=== PATIENT | male | born 1995 | race African-American/Black ===

== ENCOUNTER 2016-12-06 11:16 | Emergency (ER) | payer OTHER ==
[~2016-12-06] VITALS: Ht 180.3 cm; Wt 90.7 kg
--- OUTSIDE RECORDS SUMMARY | 2016-12-06 11:23 | External Medical Summary Rpt ---
Author Author , Organization [employer] Address Unknown Phone Unavailable Purpose Continuity of Care Document - 03-04-1998 through 2016 Immunization Name Date Route CVX Reacti Commen Provid Is Given on t er Refuse d Tdap, Histor H149 No Adsorb 2005 ical ed Inform ation - Source Unspec ified DTaP, Histor H149 No UF 1997 ical Inform ation - Source Unspec ified MMR Histor H149 No 1997 ical Inform ation - Source Unspec ified Polio- Histor H149 No OPV 1997 ical Inform ation - Source Unspec ified
--- OUTSIDE RECORDS SUMMARY | 2016-12-06 11:23 | External Medical Summary Rpt ---
Author Author , Organization [employer] Address Unknown Phone Unavailable Care Team Providers Care Dental Billing Specialist Name Role Phone PARAMJIT ZAFAR Unavailable Unavailable PARAMJIT LOGAN Unavailable Unavailable ROSELINE [facility] Unavailable [place] [facility] [place] HOU DON, Unavailable Unavailable HOU DON HOU DON, Unavailable Unavailable HOU DON HOU, DON R, Unavailable Unavailable HOU, DON R [facility] # Unavailable Unavailable [id number], [facility] # [id number] Purpose Continuity of Care Document - 01-28-2008 through 2016 Problems Code Diagnosis DOS Provider Status 03619 UNSPECIFIED 05-08-2011 PARAMJIT DUKES INFECTIVE OTITIS EXTERNA 6989 UNSPECIFIED 03-29-2010 AMEYA PRURITIC DON DISORDER 463 ACUTE 01-28-2008 AMEYA TONSILLITIS DON R Medications Na ND Rx Da Fi Fi Am Da Di Ph RX Ph St me C No te ll ll ou ys ag ar # ys at rm s nt no ma ic us Or Da si cy ia de te s n re d TR 00 10 10 3 [address] Ac IA 16 -2 -2 .0 L- 91 EP ti MC 80 6- 6- 00 MA 68 HE ve IN 00 20 20 RT 5 NS OL 41 10 10 ON 5 PH DO E AR N 0. MA R 1% CY # CR EA 10 M 05 91 SM 49 08 09 00 12 12 EA 99 No Ac 34 -2 -[address] 22 t ti LO 80 6- 1- 00 SI 78 Av ve RA 63 20 20 0 DE ai TA 63 08 08 la DI 4 PH bl NE AR e 5 MA CY MG /5 OF CY ML NT HI SY AN RU A P AM 00 08 09 00 15 10 EA 99 No Ac OX 78 -2 -[address] 22 t ti IC 16 6- 1- 00 SI 77 Av ve IL 04 20 20 0 DE ai LI 15 08 08 la N 5 PH bl 25 AR e 0 MA MG CY /5 OF ML CY NT ALVAREZ HI SP AN A Encounters Encounter Start End Date Code Location Performer Type Date OFFICE 54422 PARAMJIT RENAJIMI OUTPATIEN 1 1 ROSELINE ROSELINE T NEW 30 MINUTES OFFICE 61159 AMEYA SILVA 0 0 DON DON T VISIT 15 MINUTES
--- OUTSIDE RECORDS SUMMARY | 2016-12-06 11:23 | External Medical Summary Rpt ---
Author Author RACHELLE Iqbal, [employer] Organization [employer] Address Unknown Phone Unavailable
--- OUTSIDE RECORDS SUMMARY | 2016-12-06 11:23 | External Medical Summary Rpt ---
Author Author , Organization [employer] Address Unknown Phone Unavailable Care Team Providers Care Food Dehydrator Operator Name Role Phone PARAMJIT ZAFAR Unavailable Unavailable PARAMJIT LOGAN Unavailable Unavailable ROSELINE [facility] Unavailable [place]available [place] [facility] [place] HOU DON, Unavailable Unavailable HOU DON HOU DON, Unavailable Unavailable HOU DON HOU, DON R, Unavailable Unavailable HOU, DON R [facility] # Unavailable Unavailable [id number], [facility] # [id number] Purpose Continuity of Care Document - 01-28-2008 through 2016 Problems Code Diagnosis DOS Provider Status 64721 UNSPECIFIED 05-08-2011 PARAMJIT DUKES INFECTIVE OTITIS EXTERNA [...] Date Code Location Performer Type Date OFFICE 70669 PARAMJIT RENAJIMI OUTPATIEN 1 1 ROSELINE ROSELINE T NEW 30 MINUTES OFFICE 25390 AMEYA SILVA 0 0 DON DON T VISIT 15 MINUTES
--- OUTSIDE RECORDS SUMMARY | 2016-12-06 11:23 | External Medical Summary Rpt ---
Author Author , Organization [employer] Address Unknown Phone Unavailable Care Team Providers Care Lead Electrical Engineer Name Role Phone PARAMJIT ZAFAR Unavailable Unavailable ROSELINE PARAMJIT ZAFAR Unavailable Unavailable ROSELINE [facility] Unavailable [place]available [place] [facility] [place] HOU DON, Unavailable Unavailable HOU DON HOU DON, Unavailable Unavailable HOU DON HOU, DON R, Unavailable Unavailable HOU, DON R [facility] # Unavailable Unavailable [id number], [facility] # [id number] Purpose Continuity of Care Document - 01-28-2008 through 2016 Problems Code Diagnosis DOS Provider Status 57899 UNSPECIFIED 05-08-2011 PARAMJIT DUKES INFECTIVE OTITIS EXTERNA [...] Date Code Location Performer Type Date OFFICE 26016 PARAMJIT CHASEJIMI OUTPATIEN 1 1 ROSELINE ROSELINE T NEW 30 MINUTES OFFICE 20717 AMEYA HOU OUTPATIEN 0 0 DON DON T VISIT 15 MINUTES
--- OUTSIDE RECORDS SUMMARY | 2016-12-06 11:23 | External Medical Summary Rpt ---
Author Author , Organization [employer] Address Unknown Phone Unavailable Care Team Providers Care Doll Maker Name Role Phone PARAMJIT ZAFAR Unavailable Unavailable ROSELINE PARAMJIT ZAFAR Unavailable Unavailable ROSELINE [facility] Unavailable Unavailable [place], [facility] [place] HOU DON, Unavailable Unavailable HOU DON HOU DON, Unavailable Unavailable HOU DON HOU, DON R, Unavailable Unavailable HOU, DON R [facility] # Unavailable Unavailable [id number], [facility] # [id number] Purpose Continuity of Care Document - 01-28-2008 through 2016 Problems Code Diagnosis DOS Provider Status 62161 UNSPECIFIED 05-08-2011 PARAMJIT DUKES INFECTIVE OTITIS EXTERNA [...] Date Code Location Performer Type Date OFFICE 29942 PARAMJIT CHASEJIMI OUTPATIEN 1 1 ROSELINE ROSELINE T NEW 30 MINUTES OFFICE 66278 AMEYA HOU OUTPATIEN 0 0 DON DON T VISIT 15 MINUTES
--- NOTE | 2016-12-06 13:16 | RADIOLOGY REPORT PS360 ---
CHEST(2 VIEWS-NOT PORTABLE) HISTORY: pain in left ribs ORDERING PHYSICIAN: ABDIEL NEVILLE APRN PATIENT AGE: 21 years COMPARISON: None available FINDINGS: The cardiomediastinal silhouette and pulmonary vascularity are within normal limits. Patchy density is present in the left midlung zone laterally and may represent pneumonia in the appropriate clinical setting. No obvious effusion. No evidence of pneumothorax.. No acute bony abnormalities. IMPRESSION: Patchy density left midlung which could be due to underlying pneumonia. Additional consideration would include infarction, contusion or even underlying ill-defined nodule. Please correlate clinically. Recommend following to clear
--- NOTE | 2016-12-06 14:07 | Urgent Treatment Center Report ---
History of Present Issue Date/Time Seen by Provider 12/06/16 1125 Visit Reason Pt arrived:Walked Presenting Problem:pt states he was treated for strep 2 weeks ago. pt began having rib pain approx 5 days ago on the left side. mimi increases with deep breathing and positioning. pt unable to lay on left side. pt states he has a non productive cough. Location if Accident: Onset of symptoms date/time:/ or onset unknown for:MEDICAL HX UNKNOWN Have you (or family members/close friends) recently traveled outside the [place]? N If Yes, where/when: Have you had exposure to infectious disease within the past month? TB? Other? Specify: c/o left anterior chest pain x1 week but worse x 2-3 days. Cough x 2 weeks. Seen in [facility]. reports dx strep and treated with azithromycin. Strep negative. "They said they didn't swab good and it looked like strep so gave me an antibiotic". Pain 6-7/10 despite 1000mg tylenol and 800mg ibuprofen. Worse w/ deep breaths and certain movements. Denies SOA or wheezing. [place] like his heart was racing days ago but EKG negative. Nonsmoker. Source patient Exam Limitations no limitations ALLERGIES Coded Allergies: No Known Allergies (12/06/16) Home Medications Reported Medications No Known Home Medications History Medical History General Angina: No [place]: No Hypertension? No Hyperlipidemia? No CHF? No COPD? No Asthma? No GI Bleed? No Hernia? No Thyroid Problems? No Hypothyroidism? No CVA? No Seizures? No Diabetes? No Renal Insuffiency? No UTI? No Stones? No BPH? No GB Disease: No Nephritic Syndrome? No Asplenia? No Hepatitis? No Sickle Cell Disease? No Arthritis? No Migraines? No Cataracts? No Glaucoma? No MRSA? No HIV? No TB? No Anxiety? No Depression? No Cancer? No Site: N More? No Immunization HX DT/Tetanus 1-4 Years Ago Surgical Hx Previous Surgery?N Social History Smoking Hx Smoker: Never Smoker Tobacco: No Alcohol Alcohol: No Review of Systems All Other Systems Reviewed and Negative Constitutional denies chills, denies fever, denies malaise ENT denies: ear pain, nose discharge, nose congestion, throat pain. Respiratory see HPI Cardiovascular see HPI Gastrointestinal denies nausea, denies vomiting Musculoskeletal denies back pain Skin denies rash Psychiatric/Neurological denies other (dizziness) Physical Exam Vital Signs Vital Signs Date Time Temp Pulse Resp B/P Pulse O2 O2 Flow FiO2 Ox Delivery Rate 12/06 1124 98.0 72 20 137/82 99 General Appearance mild distress (uncomfortable, repositioning) Eye Exam - bilateral eye normal exam Ear, Nose, Throat normal ENT inspection Neck non-tender, supple Respiratory Status Yes: trachea midline, chest symmetrical, tender on palpation (left mid anterior, left flank), pain on inspiration, non productive cough. No: respiratory distress, use of accessory muscles, pain on expiration. Lung Sounds anterior: lungs clear. posterior: lungs clear. bilateral: lungs clear. Cardiovascular regular rate/rhythm, no peripheral edema, no murmur Back no tenderness Neurologic alert, oriented x 3 Mental status normal mood/affect Skin normal color, warm/dry Lymphatic no adenopathy Medical Decision Making LABS/Meds/Orders Pt receiving controlled substance in ED? No Results/Orders Laboratory Tests 12/06/16 1135: Group A Strep Screen NOT DETECTED Orders Procedure Date/time Status [facility] STREP SCREEN 12/06 1134 Complete XRAY/CT/US XRAY/CT/US XRAY chest Comment Rvwd initially with ER MD, Dr. Sweet. Encouraged to discuss w/ radiologist due to possible abnormality left mid lung. Radiologist on lunch. Will read when he returns. Once returned, reviewed report. Discussed further w/ Dr. Sweet who suggest CTA. Departure Departure Time of Disposition 1355 Disposition Still a Patient Clinical Impression Primary Impression: Cough Secondary Impressions: Abnormal chest x-ray, Chest pain made worse by breathing Condition STABLE Additional Instructions Sent to ER for further evaluation and CTA. Prescriptions Current Visit Scripts No Known Home Medications at 1403
--- NOTE | 2016-12-06 14:07 | Urgent Treatment Center Report ---
History of Present Issue Date/Time Seen by Provider 12/06/16 1125 Visit Reason Pt arrived:Walked Presenting Problem:pt states he was treated for strep 2 weeks ago. pt began having rib pain approx 5 days ago on the left side. mimi increases with deep breathing and positioning. pt unable to lay on left side. pt states he has a non productive cough. Location if Accident: Onset of symptoms date/time:/ or onset unknown for:MEDICAL HX UNKNOWN Have you (or family members/close friends) recently traveled outside the [place]? N If Yes, where/when: Have you had exposure to infectious disease within the past month? TB? Other? Specify: c/o left anterior chest pain x1 week but worse x 2-3 days. Cough x 2 weeks. Seen in [facility]. reports dx strep and treated with azithromycin. Strep negative. "They said they didn't swab good and it looked like strep so gave me an antibiotic". Pain 6-7/10 despite 1000mg tylenol and 800mg ibuprofen. Worse w/ deep breaths and certain movements. Denies SOA or wheezing. [place] like his heart was racing days ago but EKG negative. Nonsmoker. Source patient Exam Limitations no limitations ALLERGIES Coded Allergies: No Known Allergies (12/06/16) Home Medications Reported Medications No Known Home Medications History Medical History General Angina: No OR: No Hypertension? No Hyperlipidemia? No CHF? No COPD? No Asthma? No GI Bleed? No Hernia? No Thyroid Problems? No Hypothyroidism? No CVA? No Seizures? No Diabetes? No Renal Insuffiency? No UTI? No Stones? No BPH? No GB Disease: No Nephritic Syndrome? No Asplenia? No Hepatitis? No Sickle Cell Disease? No Arthritis? No Migraines? No Cataracts? No Glaucoma? No MRSA? No HIV? No TB? No Anxiety? No Depression? No Cancer? No Site: N More? No Immunization HX DT/Tetanus 1-4 Years Ago Surgical Hx Previous Surgery?N Social History Smoking Hx Smoker: Never Smoker Tobacco: No Alcohol Alcohol: No Review of Systems All Other Systems Reviewed and Negative Constitutional denies chills, denies fever, denies malaise ENT denies: ear pain, nose discharge, nose congestion, throat pain. Respiratory see HPI Cardiovascular see HPI Gastrointestinal denies nausea, denies vomiting Musculoskeletal denies back pain Skin denies rash Psychiatric/Neurological denies other (dizziness) Physical Exam Vital Signs Vital Signs Date Time Temp Pulse Resp B/P Pulse O2 O2 Flow FiO2 Ox Delivery Rate 12/06 1124 98.0 72 20 137/82 99 General Appearance mild distress (uncomfortable, repositioning) Eye Exam - bilateral eye normal exam Ear, Nose, Throat normal ENT inspection Neck non-tender, supple Respiratory Status Yes: trachea midline, chest symmetrical, tender on palpation (left mid anterior, left flank), pain on inspiration, non productive cough. No: respiratory distress, use of accessory muscles, pain on expiration. Lung Sounds anterior: lungs clear. posterior: lungs clear. bilateral: lungs clear. Cardiovascular regular rate/rhythm, no peripheral edema, no murmur Back no tenderness Neurologic alert, oriented x 3 Mental status normal mood/affect Skin normal color, warm/dry Lymphatic no adenopathy Medical Decision Making LABS/Meds/Orders Pt receiving controlled substance in ED? No Results/Orders Laboratory Tests 12/06/16 1135: Group A Strep Screen NOT DETECTED Orders Procedure Date/time Status [facility] STREP SCREEN 12/06 1134 Complete XRAY/CT/US XRAY/CT/US XRAY chest Comment Rvwd initially with ER MD, Dr. Sweet. Encouraged to discuss w/ radiologist due to possible abnormality left mid lung. Radiologist on lunch. Will read when he returns. Once returned, reviewed report. Discussed further w/ Dr. Sweet who suggest CTA. Departure Departure Time of Disposition 1355 Disposition Still a Patient Clinical Impression Primary Impression: Cough Secondary Impressions: Abnormal chest x-ray, Chest pain made worse by breathing Condition STABLE Additional Instructions Sent to ER for further evaluation and CTA. Prescriptions Current Visit Scripts No Known Home Medications at 1408
[2016-12-06 14:21] LABS: HEMOGLOBIN 15.3 g/dL (14.1-18.0)
--- NOTE | 2016-12-06 14:24 | Emergency Room Report ---
History of Present Illness Time Seen by MD Corey Presenting Problem in Triage Pt arrived:Walked Presenting Problem:PT SENT DOWN TO EVALUATED AT [facility] FOR QUESTIONABLE PLEURITIC SYMPTOMS. CHEST XRAY CANNOT RULE OUT POSSIBLE LUNG INFARCTION Onset of symptoms date/time:/ or onset unknown for:MEDICAL HX UNKNOWN Treatment Prior to Arrival: EVAL'D AT [facility] REGISTERED PUBLIC HEALTH NURSE Provided by:NURSE Sepsis Risk Assessment: Temp: 98 B/P: 133/76 MAP: 114 Pulse: 80 Resp: 20 Recent fever? N Clinical Suspician of Infection? N Mental Status: 1 - Regular (Normal Baseline) Sepsis Risk:Low Sepsis Risk Have you (or family members/close friends) recently traveled outside the [place]? N If Yes, where/when: Have you had exposure to infectious disease within the past month? TB? Other? Specify: Comment The patient complains of left-sided pleuritic chest pain that began on Sunday 5 days ago. It got much worse today. It also hurts to sleep on that side. He was diagnosed with strep throat 2 weeks ago and treated with Z-Obie. His sore throat got better. The chest pain then developed after that. He says that he wakes up sometimes with a cough at night that produces some sputum, no blood. No fever. No leg pain or swelling. He had a chest x-ray done at the urgent treatment center today for his chest pain and the radiologist read it as showing an area of the LEFT lung that could be a infiltrate, nodule, or infarct. He is therefore sent here for a CAT scan for further evaluation. ALLERGIES Coded Allergies: No Known Allergies (12/06/16) History Medical History General Angina: No [place]: No Hypertension? No Hyperlipidemia? No CHF? No COPD? No Asthma? No GI Bleed? No Hernia? No Thyroid Problems? No Hypothyroidism? No CVA? No Seizures? No Diabetes? No Renal Insuffiency? No End Stage Renal Disease? No UTI? No Stones? No BPH? No GB Disease: No Nephritic Syndrome? No Asplenia? No Hepatitis? No Sickle Cell Disease? No Arthritis? No Migraines? No Cataracts? No Glaucoma? No MRSA? No HIV? No TB? No Anxiety? No Depression? No Cancer? No Site: N More? No Immunization Hx Ped.Immunizations UTD Yes DT/Tetanus 1-4 Years Ago Surgical Hx Previous Surgery?N Social History Smoking Hx Smoker: Never Smoker Tobacco: No Type N/A Are you/the child exposed to second-hand smoke: No Alcohol Alcohol: No Review of Systems All Other Systems Reviewed and Negative Constitutional denies fever Respiratory cough, denies shortness of breath Cardiovascular chest pain Physical Exam Vital Signs Vital Signs Date Time Temp Pulse Resp B/P Pulse O2 O2 Flow FiO2 Ox Delivery Rate 12/06 1715 80 20 133/76 98 12/06 1401 98.0 102 20 163/90 99 12/06 1124 98.0 72 20 137/82 99 General Appearance normal appearance, WD/WN Eye Exam - bilateral eye normal exam, bilateral eye PERRL, bilateral eye EOMI Ear, Nose, Throat hearing grossly normal, normal ENT inspection Neck normal inspection, non-tender, supple, full range of motion Respiratory Status Yes: trachea midline, chest symmetrical. No: respiratory distress. Lung Sounds bilateral: normal breath sounds, lungs clear. 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 No Results/Orders Laboratory Tests 12/06/16 1405: Sodium 140, Potassium 3.6, Chloride 103, Carbon Dioxide 27, BUN 14, Creatinine 1.0, Estimated Creat Clear 149, Estimated GFR (MDRD) 93, Glucose 105, Calcium 9.6, Total Bilirubin 0.4, AST 25, ALT 41, Alkaline Phosphatase 129 H, Troponin I < 0.02, Total Protein 8.9 H, Albumin 4.2, Globulin 4.7 H, Albumin/Globulin Ratio 0.9 L, WBC 9.4, RBC 5.57, Hgb 15.3, Hct 45.9, MCV 82.4, RDW 13.8, Plt Count 312, MPV 7.7, Gran % 51.1, Gran # 4.8, Lymphocytes % 42.0, Monocytes % 6.0 , Eosinophils % 0.4, Basophils % 0.5, Lymphocytes # 4.0, Monocytes # 0.6, Eosinophils # 0.0, Basophils # 0.1, PUBS MCHC 33.4, MCH 27.5 12/06/16 1135: Group A Strep Screen NOT DETECTED Current Medication Orders Sig/Aj Start time Last Medication Dose Route Stop Time Status Admin Ketorolac 30 MG ONCE ONE 12/06 1800 AC Tromethamine IV 12/06 180 Levofloxacin 500 MG ONCE ONE 12/06 1800 AC PO 12/06 1801 Iopamidol 60 ML ONCE ONE 12/06 1700 UNV 12/06 IV 12/06 170 1605 Sodium Chloride 20 ML ONCE ONE 12/06 170 UNV / IV 12/06 170 1605 Sodium Chloride 20 ML ONCE ONE 12/06 1700 UNV / IV 12/06 1701 1605 Sodium Chloride 10 ML ONCE ONE 12/06 1700 UNV 12/06 IV 12/06 1701 1605 Orders Procedure Date/time Status DIET-NOTHING BY MOUTH 12/06 D Active ELECTROCARDIOGRAM REQUEST 12/[address] CHEST W/PE PROTOCOL REQ 12/06 141 Complete TROPONIN I 12/06 1416 Complete CBC WITH AUTO DIFF 12/06 141 Complete CHEM 12 PROFILE 12/06 1416 Complete UTC STREP SCREEN 12/06 1134 Complete 12 LEAD EKG-ROBINSON (INITIAL) 12/06 UNK Active CM/EKG CM/EKG Comments EKG interpreted by Bandar Sweet MD: Rhythm: sinus Rate: 82 [place]: normal Ectopy: none Conduction: normal ST Segment Changes: none T Wave Changes: none Q Waves: none No evidence of acute ischemia or injury XRAY/CT/US XRAY/CT/US CT chest Comment CT scan interpreted by radiologist: Somewhat limited exam. No central pulmonary embolus evident. Peripheral pulmonary arteries are not well opacified. LEFT hilar and mediastinal adenopathy with nodular opacification in the LEFT upper lobe laterally which may be related to underlying pneumonia with reactive adenopathy. The pattern of consolidation is not typical for pulmonary infarction. Departure Departure Disposition DC Home or Self Care(routine) Clinical Impression Primary Impression: Pneumonia Qualifiers: Pneumonia type: due to unspecified organism Laterality: left Lung location: upper lobe of lung Qualified Code: J18.1 - Lobar pneumonia, unspecified organism Secondary Impressions: Chest pain, pleuritic Condition STABLE Patient Instructions DI for Pleurisy, DI for Pneumonia -- Adult Additional Instructions Sent to ER for further evaluation and CTA. Prescriptions Current Visit Scripts Naproxen (Naprosyn 500MG Tab) 500 MG PO BID #14 TAB Levofloxacin (Levaquin 500MG) 500 MG PO DAILY #10 TAB ED Critical Care Critical Care No at 5726
[2016-12-06 14:33] LABS: BUN 14 mg/dL (7-18)
[2016-12-06 14:34] LABS: GFR (ESTIMATED) 93 ML/MIN (>60)
--- NOTE | 2016-12-06 16:36 | RADIOLOGY REPORT PS360 ---
CTA-CHEST HISTORY: Anterior left-sided chest pain, abnormal chest x-ray R/O LUNG INFARCTION ORDERING PHYSICIAN: Bandar Sweet MD PATIENT AGE: 21 years TECHNIQUE: Helical acquisition obtained following the bolus administration of 60 mL of Isovue 370 followed by a saline bolus. Axial, sagittal, and coronal reformatted images are generated and reviewed. COMPARISON: Radiograph of the same day FINDINGS: Adenopathy is present in the aortopulmonic window and left hilum. The Peripheral pulmonary arteries are not well opacified. No proximal pulmonary embolus is evident. No evidence of aortic aneurysm. There is mild degree of motion artifact. There is nodular opacification of the left upper lobe laterally adjacent to the major fissure consistent with pneumonia. No effusions. Upper abdominal images are unremarkable. IMPRESSION: 1. Somewhat limited exam. No central pulmonary embolus evident. Peripheral pulmonary arteries are not well opacified. 2. Left hilar and mediastinal adenopathy with nodular opacification in the left upper lobe laterally which may be related to underlying pneumonia with reactive adenopathy. Follow-up recommended to confirm resolution. The pattern of consolidation is NOT typical for pulmonary infarction.
[2016-12-06] MEDS ORDERED: NAPROSYN500 M1 PO (17:51)
[2016-12-06] MEDS ORDERED: LEVAQUIN500 MG PO (17:51)
[2016-12-06 18:10] VITALS: BP 111/66
== END 2016-12-06 18:11 | disposition home or self-care (01) ==
LOC: UTC 11:16 → ER 11:20
PROVIDERS: Emergency Medicine
DX: J18.1 Lobar pneumonia, unspecified organism (principal)
CPT/HCPCS: Q9967

== ENCOUNTER → 2017-05-15 | Outpatient (CLI) | payer OTHER ==
[~2017-05-15] MED LIST: LEVAQUIN500 MG PO; NAPROSYN500 M1 PO
--- NOTE | 2017-05-16 06:46 | RADIOLOGY REPORT PS360 ---
CT CHEST W/O CONTRAST HISTORY: Follow-up pulmonary nodules LUNG NODULES ORDERING PHYSICIAN: SUNIL BRUNO PATIENT AGE: 22 years TECHNIQUE: Helical acquisition obtained following the intravenous administration of 75 mL of Isovue 370 .. Axial, sagittal, and coronal reformatted images are generated and reviewed. COMPARISON: 01/11/2017 FINDINGS: There is residual soft tissue density in the anterior mediastinum probably related to residual thymic tissue. Multiple noncalcified pulmonary nodules are once again noted in the left upper lobe peripherally with coalescence of the nodules posteriorly measuring up to 2 cm not significantly changed. Mild adenopathy in the aortopulmonic window is once again noted along with small nodes in the left hilum. These do not appear significantly changed but are somewhat difficult to evaluate without IV contrast. The remaining lungs are clear. No effusions or infiltrates. Upper abdominal images are unremarkable. No acute bony anomalies. IMPRESSION: Overall no change in the multiple small left upper lobe pulmonary nodules with mild hilar and mediastinal adenopathy compared 01/11/2017
== END ==
LOC: RAD 11:58
DX: R91.1 Solitary pulmonary nodule (principal)